=== PATIENT | female | born 1965 | race Hispanic/Latino ===

== ENCOUNTER 2018-05-09 12:30 | Day surgery (SDC) | payer OTHER ==
[2018-05-08 17:06] VITALS: BMI 45.7
--- NOTE | 2018-05-09 21:18 | OP ---
DATE OF PROCEDURE: 05/09/2018 TITLE OF PROCEDURE: Colonoscopy. PREPROCEDURE DIAGNOSES: 1. Colon screening. 2. Hemorrhoidal bleeding. 3. Constipation. POSTOPERATIVE DIAGNOSES: 1. Exam to cecum; good bowel preparation. 2. Small internal hemorrhoids and hypertrophied anal papillae. 3. Otherwise normal colonoscopy. No polyps or diverticulosis seen. PROCEDURE IN DETAIL: Written informed consent was obtained. The patient was brought to the endoscop y suite. Total intravenous anesthesia was provided by Dr. Brooke Manning waterproof material folder. The patient was placed in the left lateral decubitus position. A digital rectal exam revealed palpable internal hemorrhoids. A Pentax video colonoscope was inserted through the anal canal and advanced under direc t visualization to the cecum. Position in the cecum was verified by clear identification of the appe ndiceal orifice and the ileocecal valve. The quality of the bowel preparation was good. Each colon segment was examined carefully as the colonoscope was slowly withdrawn from the cecum. Vascular daysi robb and haustral folds appeared normal. There was no evidence of bleeding or vascular ectasia. No p olyp or diverticular orifice was identified. In the rectum, a retroflexed view demonstrated small in ternal hemorrhoids that were not actively bleeding. A few small hypertrophied anal papillae were als o noted. The colon was decompressed as the colonoscope was removed from the patient. She was transf erred to the day stay surgery area for post-procedure monitoring. There were no immediate complicati ons. RECOMMENDATIONS: 1. High-fiber low fat diet. 2. Add daily fiber supplement such as Metamucil 2-3 teaspoons in water every evening. 3. Discontinue MiraLax as this has not been helpful in controlling her constipation. 4. Initiate trial of Linzess 290 mcg q.a.m. 5. Follow up in GI clinic in 5 weeks. 6. For colon screening purposes, repeat colonoscopy in 10 years. 7. Resume all usual medications.
== END 2018-05-09 16:06 | disposition home or self-care (01) ==
LOC: SDC 12:30
PROVIDERS: ATTEND Internal Medicine Gastroenterology
PROC: 0DJD8ZZ Inspection of Lower Intestinal Tract, Via Natural or Artificial Opening Endoscopic (ICD-10-PCS; principal; 2018-05-09)
DX: K64.8 Other hemorrhoids (principal); K64.4 Residual hemorrhoidal skin tags; K59.09 Other constipation; E11.9 Type 2 diabetes mellitus without complications; E78.00 Pure hypercholesterolemia, unspecified; E66.9 Obesity, unspecified; M19.90 Unspecified osteoarthritis, unspecified site; Z88.5 Allergy status to narcotic agent; Z79.84 Long term (current) use of oral hypoglycemic drugs; Z79.899 Other long term (current) drug therapy; Z68.42 Body mass index [BMI] 45.0-49.9, adult
CPT/HCPCS: 36416

== ENCOUNTER → 2018-06-07 | Day surgery (SDC) | payer OTHER ==
[2018-06-06 09:57] VITALS: BMI 47.9
[~2018-06-07] MED LIST: Bacitracin Zinc Ointment 30 gm TUBE ONE; Betamet Acet/Betamet Na Ph 30 MG/5 ML VIAL ONE; Bupivacaine PF 0.5% 30 ML VIAL ONE; CEFAZOLIN/Water 2 GM/20 ML SYRINGE ONE; Fentanyl 100 MCG/2 ML VIAL ONE; Ketorolac Tromethamine 30 MG/ML VIAL ONE; Lidocaine 1% PF 5 ML VIAL ONE; Ondansetron HCl/PF 4 MG/2 ML Vial ONE; PROPOFOL 20 ML ONE; PROPOFOL 200 MG/20 ML VIAL ONE
[2018-06-07 09:40] LABS: #Basophils 0.1 thou/uL (0.0-0.2); #Eosinphils 0.5 thou/uL (0.0-0.7); #Lymphocytes 3.8 thou/uL (1.20-3.40); #Monocytes 0.7 thou/uL (0.11-0.59); #Neutrophils 5.3 thou/uL (1.40-6.50); %Basophils 0.9 % (0.0-1.0); %Lymphocytes 36.3 % (21.0-51.0); %Monocytes 6.4 % (0.0-10.0); %Neutrophils 51.3 % (42.0-75.0); Mean Corpuscular HGB CONC 34.7 g/dL (32.0-36.0); Mean Corpuscular Hemoglobin 30.6 pg (27.0-31.0); Mean Corpuscular Volume 88.2 fL (78.0-98.0); Mean Platelet Volume 6.9 fL (7.4-10.4); Platelet Count 335 thou/uL (130-400); RBC Distribution Width 11.8 % (11.5-14.5); Red Blood Cell (RBC) Count 4.57 mill/uL (4.20-5.40); White Blood Cell (WBC) Count 10.4 thou/uL (4.8-10.8)
[2018-06-07 10:04] LABS: Anion Gap 14 mmol/L (10-20); BUN (Urea Nitrogen) 10 mg/dL (9.8-20.1); Calc. Creatinine Clearance 179 mL/min (70-130); Carbon Dioxide 24 mmol/L (22-29); Chloride 102 mmol/L (98-107); Estimated GFR-MDRD Greater than 90; Glucose 214 mg/dL (70-105); Potassium 4.2 mmol/L (3.5-5.1); Sodium 136 mmol/L (136-145)
--- NOTE | 2018-06-07 12:43 | OP ---
DATE OF PROCEDURE: 06/07/2018 SURGEON: Dr. Nick Jolly ANESTHESIA: General, IV deep sedation with propofol by [place] Anesthesia augmented by 10 mL 0.5% M arcaine block proximal to the incision and edilma-incision.. PREOPERATIVE DIAGNOSIS: 1. Tenosynovitis flexor tendon small finger. 2. Ganglion tendon sheath, right small finger. FINDINGS: 1. A1 jerry tenosynovitis with underlying flexor digitorum profundus superficialis tenosynovitis. 2. Ganglion cyst, 6 mm central over the A1 jerry tendon junction, just proximally A1 jerry over th e flexor tendon. SPECIMEN REMOVED: Ganglion and part of the A1 jerry along with some tenosynovial edema. PROCEDURE PERFORMED: 1. A1 jerry release, right small finger. 2. Ganglion cyst excision, right small finger. 3. Radical flexor tenosynovectomy over a 15 mm area, right small finger flexor tendon. ESTIMATED BLOOD LOSS: 5 mL. TOURNIQUET TIME: 14 minutes. DESCRIPTION OF PROCEDURE: After successful general anesthesia using propofol and before prep and lala pe, we gave 10 mL of 0.5% Marcaine block of epinephrine proximal to the lesion. It was allowed to be come effective during prep and drape and indeed afterwards it was. We finished timeout, made a zigza g incision slightly ulnar to the mass, carried this to the skin and subcutaneous tissue after tourniq uet was inflated to 250 mmHg pressure. Identified the mass. The digital nerves were well away from the field with retraction and were not injured. We then visualized the mass sitting center of the A1 jerry, remove the mass along with a portio n of the A1 jerry and therefore completed A1 jerry release to underneath, especially proximal to th e mass, it was very thick tenosynovial area, so we did a radical flexor tenosynovectomy with 15 mm ar ea of the flexion to the profundus and superficialis, right small finger. We then placed through the drip technique 3 mL of Celestone. Tourniquet was deflated. Hemostasis ob tained. The incision was closed with interrupted 4-0 nylon in a simple pattern. Bulky dressing was applied and the patient left the operating room with pink fingers. No evidence of anesthetic or oper ative complication.
--- NOTE | 2018-06-07 15:18 | EKG ---
Test Reason : PREOP Blood Pressure : / mmHG Vent. Rate : 083 BPM Atrial Rate : 083 BPM P-R Int : 186 ms QRS Dur : 084 ms QT Int : 396 ms P-R-T Axes : 022 006 022 degrees QTc Int : 465 ms Normal sinus rhythm Normal ECG No previous ECGs available Confirmed by SHERIN WINTERS MD ([id number]) on 06/07/2018 3:17:55 PM Referred By: GERONIMO Confirmed By:SHERIN WINTERS MD
== END ==
LOC: SDC 08:49
PROVIDERS: ATTEND Orthopaedic Surgery Hand Surgery
DX: M67.441 Ganglion, right hand (principal); M65.841 Other synovitis and tenosynovitis, right hand; M19.90 Unspecified osteoarthritis, unspecified site; E11.40 Type 2 diabetes mellitus with diabetic neuropathy, unspecified; E66.01 Morbid (severe) obesity due to excess calories; Z68.42 Body mass index [BMI] 45.0-49.9, adult; Z79.899 Other long term (current) drug therapy; Z79.4 Long term (current) use of insulin; Z88.5 Allergy status to narcotic agent
CPT/HCPCS: 36416; 80048; 85025; 88304; 93005; 93010; 96374; J0702; J1885; J2001; J2405; J2704; J3010; S0020